=== PATIENT | female | born 1955 | race Caucasian/White ===

== ENCOUNTER → 2024-07-30 07:04 | Outpatient (REF) | payer MEDICARE, SELFPAY | LOC: MRI 3T 07:04 | PROVIDERS: ATTENDING PHYSICIAN Psychiatry & Neurology Behavioral Neurology & Neuropsychiatry; FAMILY PHYSICIAN Family Medicine | DX: G31.84 Mild cognitive impairment of uncertain or unknown etiology (principal) | CPT/HCPCS: 70551 ==